=== PATIENT | female | born 1985 | race Caucasian/White ===

== ENCOUNTER 2017-03-04 13:53 | Emergency (ER) | payer OTHER ==
--- NOTE | ~2017-03-04 | CR63 ---
[facility] A Service of [facility] & [facility] RADIOLOGY TEXT RESULTS PATIENT: AMANDA GARRISON LOCATION: SED : 83 UNIT #: [id number] AGE: [address]: Darien Aranda MD SEX: F ORDER DR: [id number] [place] [id number] E MR#: [id number] Acc #: [id number] NAME: AMANDA GARRISON : 1985 SEX: F STUDY DATE/TIME: 03/04/2017 14:28 UNIT: SED ROOM: STUDY DESCRIPTION: CR Chest 2 View Attending Physician: Darien Aranda M.D. Ordering Physician: Darien Aranda M.D. Primary Care Physician: Yan Finney M.D. MEDICAL IMAGING REPORT This report is preliminary unless electronic signature is present. EXAM Chest x-ray 03/04 INDICATIONS Shortness of air for 4 days. History of sarcoid. FINDINGS 2 views of the chest were obtained. No comparison. Cardiac and mediastinal contours are normal. There is infiltrate in the lingula which could reflect pneumonia. The lungs otherwise are clear. No pneumothorax. IMPRESSION Lingular infiltrates worrisome for pneumonia. Correlate clinically in this regard. Chest x-ray is otherwise negative. Dictated by... Marcell Avilez Jr., M.D. THIS IS AN ELECTRONICALLY VERIFIED REPORT Marcell Avilez Jr., M.D. at 03/04/2017 5:09 PM FITO/donna TD: 03/04/2017 15:23 JOB #: [id number] MEDICAL IMAGING REPORT Page 1 of 1
--- NOTE | ~2017-03-04 | CR21 ---
[facility] A Service of [facility] & [facility] RADIOLOGY TEXT RESULTS PATIENT: AMANDA GARRISON LOCATION: SED : 84 UNIT #: [id number] AGE: [address]: Darien Aranda MD SEX: F ORDER DR: [id number] [place] [id number] E MR#: [id number] Acc #: [id number] NAME: AMANDA GARRISON : 1985 SEX: F STUDY DATE/TIME: 03/04/2017 14:28 UNIT: SED ROOM: STUDY DESCRIPTION: CR Ankle Min 3 Views Rt Attending Physician: Darien Aranda M.D. Ordering Physician: Darien Aranda M.D. Primary Care Physician: Yan Finney M.D. MEDICAL IMAGING REPORT This report is preliminary unless electronic signature is present. EXAM Right ankle, 03/04. INDICATION Ankle pain for 2 weeks. No trauma. FINDINGS 3 views of the right ankle were obtained. No comparison. No fracture or malalignment is seen. The mortise is intact. There may be some lateral soft tissue swelling. Correlate with physical exam findings. IMPRESSION Potential lateral soft tissue swelling. Correlate with exam findings. There is no fracture or malalignment identified. Dictated by... Marcell Avilez Jr., M.D. THIS IS AN ELECTRONICALLY VERIFIED REPORT Marcell Avilez Jr., M.D. at 03/04/2017 5:09 PM MAHSAK/rafat TD: 03/04/2017 15:27 JOB #: [id number] MEDICAL IMAGING REPORT Page 1 of 1
--- NOTE | ~2017-03-04 | EKG ---
PATIENT: AMANDA GARRISON UNIT #: [id number] Ventricular Rate: 81 BPM Atrial Rate: 81 BPM P-R Interval: 138 ms QRS Duration: 78 ms Q-T Interval: 396 ms QTC Calculation(Bezet): 460 ms P [place]: 49 degrees Calculated R [place]: 5 degrees Calculated T [place]: 39 degrees Diagnosis Line: Normal sinus rhythm Diagnosis Line: Normal ECG Diagnosis Line: No previous ECGs available Diagnosis Line: Confirmed by DELIA EDWARDS MD ([id number]) on 03/14/2017 Diagnosis Line: 11:50:02 AM INTERPRETING MD: JERRY FERNANDEZ
[~2017-03-04 13:53] MED LIST: ALBUTEROL MININEB; ALBUTEROL17 GM; ALPRAZOLAM; ATARAX; CATAPRES0.1 MG; IBUPROFEN; NORVASC; PHENERGAN; PREDNISONE; PROZAC; SEROQUEL; ZOFRAN
[2017-03-04 14:43] LABS: BUN/CREATININE RATIO 23.75; CALCIUM SERUM 8.9 mg/dL (8.4-10.2); CREATININE SERUM 0.8 mg/dL (0.6-1.4); POTASSIUM 4.3 mmol/L (3.5-5.1)
== END 2017-03-04 15:45 | disposition home or self-care (01) ==
LOC: SED 13:53
PROVIDERS: Emergency Medicine
DX: J44.9 Chronic obstructive pulmonary disease, unspecified (principal); F17.200 Nicotine dependence, unspecified, uncomplicated; Z91.040 Latex allergy status; Z88.8 Allergy status to other drugs, medicaments and biological substances
CPT/HCPCS: 71020; 73610; 80048; 93005; 94640; 96374; 99284; J1885

== ENCOUNTER 2017-03-12 13:59 | Emergency (ER) | payer OTHER ==
--- NOTE | ~2017-03-12 | EKG ---
PATIENT: AMANDA GARRISON UNIT #: [id number] Ventricular Rate: 79 BPM Atrial Rate: 79 BPM P-R Interval: 122 ms QRS Duration: 78 ms Q-T Interval: 390 ms QTC Calculation(Bezet): 447 ms P Wendell: 46 degrees Calculated R Wendell: 12 degrees Calculated T Wendell: 42 degrees Diagnosis Line: Normal sinus rhythm Diagnosis Line: Normal ECG Diagnosis Line: When compared with ECG of 04-MAR-2017 13:35, Diagnosis Line: (unconfirmed) Diagnosis Line: No significant change was found Diagnosis Line: Confirmed by DELIA EDWARDS MD ([id number]) on 03/14/2017 Diagnosis Line: 12:01:50 PM INTERPRETING MD: JERRY FERNANDEZ
--- NOTE | ~2017-03-12 | CT57 ---
[facility] A Service of [facility] RADIOLOGY TEXT RESULTS PATIENT: AMANDA GARRISON LOCATION: SED : 84 UNIT #: [id number] AGE: [address]: Darien Aranda MD SEX: F ORDER DR: [id number] [place] [id number] E MR#: [id number] Acc #: [id number] NAME: AMANDA GARRISON : 1985 SEX: F STUDY DATE/TIME: 03/12/2017 16:51 UNIT: SED ROOM: STUDY DESCRIPTION: CT Chest Wo Cont Attending Physician: Darien Aranda M.D. Ordering Physician: Darien Aranda M.D. Primary Care Physician: Yan Finney M.D. MEDICAL IMAGING REPORT This report is preliminary unless electronic signature is present. EXAM Chest CT without contrast HISTORY Shortness of breath with dyspnea. Patient diagnosed with pneumonia on 03/04/2017. Diffuse body aches. History of multiple pneumonias in the past. TECHNIQUE Axial images were obtained without contrast and evaluated at lung and mediastinal windows. This CT exam was performed with one or more of the following radiation dose reduction techniques: Automatic exposure control, adjustment of mA and/or kV according to patient size, and iterative reconstruction. FINDINGS Chest images at mediastinal window show no enlarged mediastinal or hilar lymph nodes and there is no evidence of pleural or pericardial fluid. Lung window imaging shows resolution of the left midlung field density associated with the major fissure seen on the plain film chest x-ray of 03/04/2017. The left lung is now clear. No new infiltrates are seen on either side and no pleural fluid is noted. IMPRESSION Negative chest CT. Both lungs are fully expanded and clear. The left has improved since the previous chest x-ray of 03/04/2017. Dictated by... Marcell Low M.D. [facility] A Service of [facility] RADIOLOGY TEXT RESULTS PATIENT: AMANDA GARRISON LOCATION: SED : 84 UNIT #: [id number] AGE: [address]: Darien Aranda MD SEX: F ORDER DR: THIS IS AN ELECTRONICALLY VERIFIED REPORT Marcell Low M.D. at 03/13/2017 7:34 AM CHITO/leodan TD: 03/12/2017 21:16 JOB #: [id number] MEDICAL IMAGING REPORT Page 1 of 1
[2017-03-12 15:23] LABS: BASOPHIL# 0.2 X10e3 (0-0.3); BASOPHIL% 1.4 % (0-2.5); EOSINOPHIL# 0.3 X10e3 (0-0.7); HEMATOCRIT 49.1 % (35.0-45.0); HEMOGLOBIN 16.5 gm/dL (12.0-16.0); LYMPHOCYTE# 3.9 X10e3 (1.0-3.5); LYMPHOCYTE% 22.8 % (17.0-45.0); MEAN CELL VOLUME 91.3 FL (83-96); MEAN CORPUSCULAR HEMOGLOBIN 30.7 PG (28-34); MEAN CORPUSCULAR HGB CONC 33.6 g/dL (30-36); MEAN PLATELET VOLUME 8.1 FL (6.5-11.5); MONOCYTE# 0.9 X10e3 (0-1.0); MONOCYTE% 5.4 % (3.0-12.0); NEUTROPHIL# 11.7 X10e3 (1.5-7.1); NEUTROPHIL% 68.4 % (40-75); RED BLOOD COUNT 5.37 X10e (3.90-5.30); RED CELL DISTRIBUTION WIDTH 14.2 % (11.0-15.5); WHITE BLOOD COUNT 17.1 X10e3 (4.0-10.5)
[2017-03-12 15:50] LABS: DIFF IND NO; PLATELET COUNT 85 X10e3 (140-420)
[2017-03-12 15:51] LABS: POC - CKMB <1.0 ng/mL (0.0-7.9); POC - TROPONIN <0.05 ng/mL (<=0.05)
[2017-03-12 15:51] LABS: BUN/CREATININE RATIO 16.66; CALCIUM SERUM 9.7 mg/dL (8.4-10.2); CREATININE SERUM 0.9 mg/dL (0.6-1.4); GLOM FILT RATE Estimated 84.1 mL/min (>60); POTASSIUM 3.9 mmol/L (3.5-5.1)
[2017-03-12 16:20] LABS: POC - CKMB <1.0 ng/mL (0.0-7.9)
[2017-03-12 16:21] LABS: POC - TROPONIN <0.05 ng/mL (<=0.05)
== END 2017-03-12 17:40 | disposition home or self-care (01) ==
LOC: SED 13:59
PROVIDERS: Emergency Medicine
DX: R09.1 Pleurisy (principal); D69.6 Thrombocytopenia, unspecified; J44.9 Chronic obstructive pulmonary disease, unspecified; F17.200 Nicotine dependence, unspecified, uncomplicated; Z91.040 Latex allergy status; Z88.8 Allergy status to other drugs, medicaments and biological substances
CPT/HCPCS: 36415; 71250; 71275; 80048; 82553; 84484; 84703; 85025; 87040; 93005; 96374; 99284; J1885